=== PATIENT | male | born 1995 | race Two or more races ===

== ENCOUNTER → 2016-08-15 | Outpatient (CLI) | payer OTHER | END | disposition home or self-care (01) | LOC: RADMRIMAIN 12:19 | PROVIDERS: ATTEND Nurse Practitioner Family | DX: M25.531 Pain in right wrist (principal); Z53.9 Procedure and treatment not carried out, unspecified reason ==

== ENCOUNTER → 2016-08-31 | Outpatient (CLI) | payer OTHER ==
--- NOTE | 2016-08-31 14:15 | XR ---
EXAMINATION TYPE: XR orbit detect foreign body DATE OF EXAM: 08/31/2016 2:09 PM COMPARISON: NONE HISTORY: Pre-MRI orbit TECHNIQUE: 3 views are submitted FINDINGS: No metallic artifact overlying the orbits. Visualized osseous structures intact. IMPRESSION: No metallic foreign body overlying the orbits.
--- NOTE | 2016-08-31 23:35 | MR ---
EXAMINATION TYPE: MR wrist RT wo con DATE OF EXAM: 08/31/2016 4:23 PM COMPARISON: NONE HISTORY: Rt wrist pain x 3 weeks after bowling Standard multiplanar, multisequence MRI departmental protocol Multiplanar, multisequence images of the right wrist were acquired. Diffusion weighted imaging was pe rformed. FINDINGS: There is very slight increased signal in the proximal medial aspect of the lunate on the T2 images. I see no fracture line. The other carpal bones appear intact. Joint spaces are fairly well-m aintained. The flexor and extensor tendons of the wrist appear intact. There is no evidence of a frac ture. There is very minimal increased signal also in the proximal third metacarpal at the carpometaca rpal joint. Axial images are limited slightly by motion. The triangular cartilage appears intact. IMPRESSION: There is very mild increased signal in the proximal lunate that could relate to a mild bone bruise. N o fracture. There is evidence for minimal bone bruise involving the proximal third metacarpal.
== END ==
LOC: RADMRIMAIN 13:49
PROVIDERS: ATTEND Nurse Practitioner Family
DX: M25.531 Pain in right wrist (principal)
CPT/HCPCS: 70030